=== PATIENT | female | born 2000 | race Caucasian/White ===

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

== ENCOUNTER 2018-10-02 15:31 | Emergency (ER) | payer BC ==
--- NOTE | 2018-10-02 15:57 | Emergency Department Record ---
History of Present Illness - General Stated complaint: R HAND INJURY Time Seen by Provider: 10/02/18 15:46 Source: Patient Mode of Arrival: Ambulatory Limitations: No limitations - History of Present Illness Initial comments: 17 yo female who is right handed injured her wrist at work. 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 The wrist was bend aw kwardly between the patient and the wheelchair. She has mid wrist pain. No numbness or tingling. MD Complaint: Extremity pain, Joint pain -: Hour(s) Location: Right History of Same: No -: Yes Arthralgia Radiation: Distal Quality: Aching Consistency: Constant Improves with: Immobilization Worsens with: Palpation, Weight bearing Associated Symptoms: Denies other symptoms - Related Data Allergies Allergy/AdvReac Type Severity Reaction Status Date / Time No Known Drug Allergies Allergy Unverified 09/15/18 14:16 Review of Systems Constitutional: Denies: Chills, Fever, Weakness Eyes: Denies: Eye discharge ENT: Denies: Congestion, Throat pain Respiratory: Denies: Cough, Dyspnea Cardiovascular: Denies: Chest pain, Syncope Endocrine: Denies: Fatigue Gastrointestinal: Denies: Abdominal pain, Diarrhea, Nausea, Vomiting Genitourinary: Denies: Dysuria, Urgency Musculoskeletal: Reports: Arthralgia, Myalgia. Denies: Joint swelling Skin: Denies: Bruising, Change in color, Rash Neurological: Denies: Headache, Paresthesias, Tingling, Weakness Psychiatric: Denies: Anxiety Hematological/Lymphatic: Denies: Easy bleeding, Easy bruising Past Medical History - SOCIAL HISTORY Smoking Status: Never smoker - RESPIRATORY Hx Respiratory Disorders: No - CARDIOVASCULAR Hx Cardio Disorders: No - NEURO Hx Neuro Disorders: No - GI Hx GI Disorders: No - Hx Genitourinary Disorders: No - ENDOCRINE Hx Endocrine Disorders: No - MUSCULOSKELETAL Hx Musculoskeletal Disorders: No - PSYCH Hx Psych Problems: No - HEMATOLOGY/ONCOLOGY Hx Hematology/Oncology Disorders: No Family Medical History Hx Diabetes: Grandparents Hx Heart Disease: Brother/Sister, Grandparents Hx HTN: Father Physical Exam - General General Appearance: Alert, Oriented x3, Cooperative, No acute distress Limitations: No limitations - Head Head exam: Atraumatic, Normal inspection - Eye Eye exam: Normal appearance. negative: Conjunctival injection, Scleral icterus - ENT ENT exam: Normal exam, Mucous membranes moist Ear exam: Normal external inspection Nasal Exam: Normal inspection Mouth exam: Normal external inspection - Neck Neck exam: Normal inspection - Cardiovascular Peripheral Pulses: 2+: Radial (R) - Rectal Rectal exam: Deferred - exam: Deferred - Extremities Extremities exam: Normal inspection, Full ROM, Tenderness. negative: Joint swelling Image of Hand: 1 - normal inspection, tender middle of the distal wrist, no step off, intact skin - Neurological Neurological exam: Alert, Oriented X3. negative: Motor sensory deficit - Psychiatric Psychiatric exam: Normal affect, Normal mood. negative: Agitated, Anxious - Skin Skin exam: Dry, Intact, Normal color, Warm Disposition Disposition: Discharge Clinical Impression: Sprain of wrist, right Qualifiers: Encounter type: initial encounter Qualified Code(s): S63.501A - Unspecified sprain of right wrist, initial encounter Disposition: Home, Self-Care Condition: (1) Good Instructions: Wrist Sprain (ED) Additional Instructions: No lifting one week with the right wrist Use your brace for support and comfort Motrin for mild pain Ice and elevate the wrist to prevent swelling You may need further testing in the next one to two weeks if pain continues (MRI). Call your doctor to be seen if not pain free. Forms: Patient Portal Access Time of Disposition: 16:49 Quality - Quality Measures Quality Measures: N/A - Blood Pressure Screening Does Patient Have Any of the Following: No Blood Pressure Classification: Pre-Hypertensive BP Reading Systolic Measurement: 120 Diastolic Measurement: 82 Screening for High Blood Pressure: < Pre-Hypertensive BP, F/U Documented > [G8950] Pre-Hypertensive Follow-up Interventions: Referral to alternative/primary care provider.
--- NOTE | 2018-10-05 08:34 | RADIOLOGY REPORT ---
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 ULNAR SIDED WRIST PAIN. RECENT FALL AND TWISTING INJURY FIVE DAYS AGO. TECHNIQUE: Four views of the right wrist were obtained. Comparison: None. FINDINGS: The bones appear intact. There is no visible acute fracture or dislocation. There are no significant degenerative changes. There is no focal soft tissue abnormality. IMPRESSION: NO ACUTE WRIST PATHOLOGY IDENTIFIED. JOB NUMBER: [id number] MTDD
== END 2018-10-02 17:10 | disposition home or self-care (01) ==
LOC: ER 15:31
DX: S63.501A Unspecified sprain of right wrist, initial encounter (principal); X50.0XXA Overexertion from strenuous movement or load, initial encounter; Y93.F2 Activity, caregiving, lifting; Y92.129 Unspecified place in nursing home as the place of occurrence of the external cause; Y99.0 Civilian activity done for income or pay
CPT/HCPCS: 99283